=== PATIENT | female | born 1975 | race Caucasian/White ===

== ENCOUNTER → 2020-09-27 11:21 | Outpatient (CLI) | payer OTHER | END | disposition home or self-care (01) | LOC: LAB 11:21 | PROVIDERS: ATTEND Specialist | DX: Z01.812 Encounter for preprocedural laboratory examination (principal); Z01.811 Encounter for preprocedural respiratory examination; D21.0 Benign neoplasm of connective and other soft tissue of head, face and neck ==

== ENCOUNTER 2020-10-05 08:22 | Day surgery (SDC) | payer OTHER | END 2020-10-05 19:00 | disposition home or self-care (01) | LOC: CIR.AMB 08:22 | PROVIDERS: ATTEND Specialist | DX: D17.0 Benign lipomatous neoplasm of skin and subcutaneous tissue of head, face and neck (principal); Z20.828 Contact with and (suspected) exposure to other viral communicable diseases ==